=== PATIENT | female | born 1960 | race Caucasian/White ===

== ENCOUNTER 2017-09-21 15:03 | Emergency (ER) | payer SELFPAY ==
[~2017-09-21] VITALS: Ht 162.6 cm; Wt 52.0 kg
[~2017-09-21 15:03] MED LIST: ALBU1AER INH; DAYQUIL SEVERE PO; PRED50 PO
[2017-09-21 15:08] VITALS: BP 172/82; PULSE 101; RESP 15; TEMP 98.1; O2SAT 93
[2017-09-21] MEDS ORDERED: DIAZ5 PO (15:25)
[2017-09-21] MEDS ORDERED: ALBU6.7H INH (15:25)
[2017-09-21] MEDS ORDERED: SODIUM CHLOR 0.9% 1000 ML INJ 1,000 ML IV SCH (15:29)
[2017-09-21] MEDS ORDERED: SODIUM CHLORIDE 0.9% FLUSH 10 ML FLUSH IV FLUSH PRN (15:30)
--- NOTE | 2017-09-21 15:35 | PD ---
HPI Chief Complaint: GI Complaint Time Seen by Provider: 15:23 Travel History International Travel<30 days: No Contact w/Intl Traveler<30days: No Traveled to known affect area: No History of Present Illness HPI 57-year-old female complains of generalized malaise and weakness and vomiting. Patient states the symptoms started 3 days ago. Patient has history recurrent vomiting with dehydration in the past. Patient states that she usually got better with IV fluid and medication. Patient states that she drinks alcohol once in a while. Patient has history COPD and is a smoker. Patient denies any headache. Patient denies any chest pain shortness of breath. Patient states that she has mild occasionally chronic cough from COPD. Patient denies any abdominal pain. Patient denies any dysuria or frequency. Patient denies any vaginal discharge or bleeding. Patient denies any fever chills. Patient denies any back pain. PFSH Past Medical History Diminished Hearing: No Respiratory: Yes Influenza Vaccination: No ?: Not Menopausal: Yes : 2 Para: 1 : 1 Social History Alcohol Use: Yes (Thursday) Tobacco Use: Yes (11/11 PPD) Substance Use: Yes Allergies-Medications (Allergen,Severity, Reaction): Coded Allergies: No Known Allergies (Verified Adverse Reaction, Unknown, 09/21/17) Reported Meds & Prescriptions Reported Meds & Active Scripts Active Reported Proventil Hfa 6.7 GM Inh (Albuterol Sulfate) 90 Mcg/Act Aer 2 Puff INH Q4-6H PRN Valium (Diazepam) 5 Mg Tab 5 Mg PO HS PRN Review of Systems General / Constitutional: No: Fever Eyes: No: Visual changes HENT: No: Headaches Cardiovascular: No: Chest Pain or Discomfort Respiratory: No: Shortness of Breath Gastrointestinal: Positive: Vomiting, No: Abdominal Pain Genitourinary: No: Dysuria Musculoskeletal: No: Pain Skin: No Rash Neurologic: No: Weakness Psychiatric: No: Depression Endocrine: No: Polydipsia Hematologic/Lymphatic: No: Easy Bruising Physical Exam Narrative GENERAL: Well-nourished, well-developed patient. SKIN: Focused skin assessment warm/dry. HEAD: Normocephalic. EYES: No scleral icterus. No injection or drainage. NECK: Supple, trachea midline. No JVD or lymphadenopathy. CARDIOVASCULAR: Regular rate and rhythm without murmurs, gallops, or rubs. RESPIRATORY: Breath sounds equal bilaterally. No accessory muscle use. GASTROINTESTINAL: Abdomen soft, non-tender, nondistended. MUSCULOSKELETAL: No cyanosis, or edema. BACK: Nontender without obvious deformity. No CVA tenderness. Neurologic exam normal. Data Data Last Documented VS Vital Signs Date Time Temp Pulse Resp B/P (MAP) Pulse Ox O2 Delivery O2 Flow Rate FiO2 09/21/17 16:21 87 16 148/75 (99) 98 Room Air 09/21/17 15:08 98.1 Orders Orders Complete Blood Count With Diff (09/21/17 15:29) Comprehensive Metabolic Panel (09/21/17:29) Lipase (09/21/17:29) Urinalysis - C+S If Indicated (09/21/17:) Iv Access Insert/Monitor (09/21/17:29) Ecg Monitoring (09/21/17:29) Oximetry (09/21/17 15:29) Sodium Chlor 0.9% 1000 Ml Inj (Ns 1000 M (09/21/17 15:29) Sodium Chloride 0.9% Flush (Ns Flush) (09/21/17 15:30) Ed Discharge Order (09/21/17 16:56) Labs Laboratory Tests Test 09/21/17 15:20 White Blood Count 8.8 TH/MM3 Red Blood Count 4.51 MIL/MM3 Hemoglobin 14.0 GM/DL Hematocrit 41.5 % Mean Corpuscular Volume 91.9 FL Mean Corpuscular Hemoglobin 31.0 PG Mean Corpuscular Hemoglobin Concent 33.7 % Red Cell Distribution Width 12.6 % Platelet Count 251 TH/MM3 Mean Platelet Volume 8.9 FL Neutrophils (%) (Auto) 77.8 % Lymphocytes (%) (Auto) 14.4 % Monocytes (%) (Auto) 4.4 % Eosinophils (%) (Auto) 0.1 % Basophils (%) (Auto) 3.3 % Neutrophils # (Auto) 6.8 TH/MM3 Lymphocytes # (Auto) 1.3 TH/MM3 Monocytes # (Auto) 0.4 TH/MM3 Eosinophils # (Auto) 0.0 TH/MM3 Basophils # (Auto) 0.3 TH/MM3 CBC Comment AUTO DIFF Differential Comment AUTO DIFF CONFIRMED Blood Urea Nitrogen 22 MG/DL Creatinine 0.81 MG/DL Random Glucose 128 MG/DL Total Protein 8.2 GM/DL Albumin 4.0 GM/DL Calcium Level 9.1 MG/DL Alkaline Phosphatase 125 U/L Aspartate Amino Transf (AST/SGOT) 28 U/L Alanine Aminotransferase (ALT/SGPT) 21 U/L Total Bilirubin 1.4 MG/DL Sodium Level 136 MEQ/L Potassium Level 4.2 MEQ/L Chloride Level 98 MEQ/L Carbon Dioxide Level 27.5 MEQ/L Anion Gap 11 MEQ/L Estimat Glomerular Filtration Rate 73 ML/MIN Lipase 70 U/L [facility] Medical Decision Making Medical Screen Exam Complete: Yes Emergency Medical Condition: Yes Interpretation(s) 1642 PM. CBC within normal limit. BUN 22. Total bili 1.4. Alkaline phosphatase 125. Differential Diagnosis Differential diagnosis including gastroenteritis, gastritis, PUD, appendicitis, cholecystitis, colitis, UTI, pyelonephritis, nephrolithiasis, electrolyte imbalance, dehydration. Narrative Course 57-year-old female with recurring vomiting. Normal saline solution 1 L IV bolus. Diagnosis Primary Impression: Vomiting Qualified Codes: G43.A0 - Cyclical vomiting, not intractable Patient Instructions: General Instructions Additional Instructions: Patient had medication at home for vomiting. Advised patient to use that. Follow-up with personal physician. Return if persistent problem or worse. Med/Other Pt SpecificInfo: No Change to Meds Disposition: 01 DISCHARGE HOME Condition: Stable Teja Wade MD Sep 21, 2017 15:35
[2017-09-21 15:47] LABS: AUTOMATED NEUTROPHIL # 6.8 TH/MM3 (1.8-7.7); BASOPHIL # 0.3 TH/MM3 (0-0.2); BASOPHIL % 3.3 % (0.0-2.0); EOSINOPHIL % 0.1 % (0.0-4.0); HEMATOCRIT 41.5 % (35.0-46.0); LYMPH % 14.4 % (9.0-44.0); LYMPHOCYTE # 1.3 TH/MM3 (1.0-4.8); MEAN CELL VOLUME 91.9 FL (80.0-100.0); MEAN CORPUSCULAR HGB CONC 33.7 % (32.0-36.0); MONO % 4.4 % (0.0-8.0); NEUT % 77.8 % (16.0-70.0); PLATELET COUNT 251 TH/MM3 (150-450); RED BLOOD COUNT 4.51 MIL/MM3 (4.00-5.30); RED CELL DISTRIBUTION WIDTH 12.6 % (11.6-17.2); WHITE BLOOD COUNT 8.8 TH/MM3 (4.0-11.0)
[2017-09-21 15:55] LABS: CHLORIDE 98 MEQ/L (98-107); POTASSIUM 4.2 MEQ/L (3.5-5.1); SODIUM (NA) 136 MEQ/L (136-145)
[2017-09-21 15:59] LABS: ANION GAP 11 MEQ/L (5-15); BICARBONATE 27.5 MEQ/L (21.0-32.0); BLOOD UREA NITROGEN 22 MG/DL (7-18)
[2017-09-21 16:00] VITALS: RESP 16; O2SAT 98
[2017-09-21 16:02] LABS: ALT (GPT) 21 U/L (10-53); AST (GOT) 28 U/L (15-37); GLOMERULAR FILTRATION RATE 73 ML/MIN (>89)
[2017-09-21 16:03] LABS: HEMO FLAGS AUTO DIFF; TOTAL BILIRUBIN ADULT 1.4 MG/DL (0.2-1.0)
[2017-09-21 16:05] LABS: ALKALINE PHOSPHATASE 125 U/L (45-117)
[2017-09-21 16:21] VITALS: BP 148/75; PULSE 87; RESP 16; O2SAT 98
[2017-09-21 16:43] LABS: SCAN/DIFF AUTO DIFF CONFIRMED
== END 2017-09-21 17:08 | disposition home or self-care (01) ==
LOC: PHED 15:03
DX: G43.A0 Cyclical vomiting, in migraine, not intractable (principal); J44.9 Chronic obstructive pulmonary disease, unspecified; F17.210 Nicotine dependence, cigarettes, uncomplicated
CPT/HCPCS: 80053; 83690; 85025; 96360; 99284; J7030